=== PATIENT | female | born 1940 | race Caucasian/White ===

== ENCOUNTER 2017-11-22 01:24 | Inpatient (IN) | payer MEDICARE, OTHER ==
[~2017-11-22] VITALS: Ht 157.5 cm; Wt 56.2 kg
[2017-11-22 04:20] VITALS: BP 152/88
[2017-11-22] MEDS ORDERED: OLAN5TAB3 PO (04:27)
[2017-11-22] MEDS ORDERED: QUET25TA PO (04:27)
[2017-11-22] MEDS ORDERED: MIRT15TA7 PO (04:27)
[2017-11-22] MEDS ORDERED: MAG HYDROX/AL HYDROX/SIMETH 30 ML UDC PO PRN (04:30)
[2017-11-22] MEDS ORDERED: LORAZEPAM 0.5 MG TABLET PO PRN (04:30)
[2017-11-22] MEDS ORDERED: ACETAMINOPHEN 325 MG TABLET PO PRN (04:30)
--- NOTE | 2017-11-22 04:30 | NUR ---
GPS ADMISSION NOTE, RECEIVED PATIENT FROM [place] [facility]. PATIENT ARRIVED ON THIS UNIT AT 0430 VIA STRETCHER WITH 2 EMT ESCORTS. PATIENT ADMITTED ON A 5150 HOLD FOR DTS AND GD. PER HOLD PATIENT HAS SIGNIFICANT DEPRESSION WITH THOUGHTS OF SUICIDE WITH A PLAN TO CUT HER WRISTS. PATIENT ALSO REPORTS THAT SHE HAS BEEN UNABLE TO GET OUT OF BED, HAS NOT BEEN SLEEPING, AND HAS NOT BEEN EATING FOR THE PAST 4-5 DAYS. PATIENT UNABLE TO PROVIDE A SAFE PLAN FOR SELF CARE AT THIS TIME. THE 5150 WAS REVIEWED AND THE DOCUMENTATION IN THE 5150 HOLD APPEARS TO REFLECT THE PRESENTATION OF THE PATIENT. UPON FACE TO FACE ASSESSMENT PATIENT IS CURRENTLY LYING IN BED AWAKE, HAS NO S/S OR COMPLAINTS OF PAIN AT THIS TIME. PATIENT IS DISPLAYING NO S/S OF APPARENT DISTRESS. PATIENT BREATHING IS UNLABORED WITH EQUAL RISE AND FALL OF THE CHEST. PATIENT IS ALERT AND ORIENTATED X 4 ON ROOM AIR. PATIENT ASSISTED WITH TURING AND REPOSITIONING Q2HR AND PRN FOR COMFORT AND CIRCULATION. PATIENT HAS NO NEEDS AT THIS TIME. PATIENT IS NOTED TO BEING WITHDRAWN, DEPRESSED, DISHEVELED, DISORGANIZED, COOPERATIVE, AND NEEDS REDIRECTION. PATIENT IS UNDER THE PSYCHIATRIC CARE OF DR. ELLIOTT AND THE MEDICAL CARE OF DR GRAMAJO . PATIENT BELONGINGS WERE INVENTORIED AND CHECKED FOR CONTRABAND. ALL CONTRABAND REMOVED AND STORED IN PATIENT HALLWAY LOCKER. PATIENT ADVANCED DIRECTIVES PREFERENCE, IMMUNIZATIONS QUESTIONER, NECESSARY PAPERWORK AND, SKIN ASSESSMENT COMPLETED. PATIENT ORIENTATED TO ROOM, FLOOR, AND STAFF WITH ALL QUESTIONS ANSWERED. PATIENT EDUCATED ON THE USE OF THE CALL MUNOZ. PATIENT REFUSED TO SIGN ALL PAPERWORK. PATIENT BED SIDE RAILS ARE UP X 2 FOR SAFETY. PATIENT BED IS LOCKED, LOW AND I WILL CONTINUE TO MONITOR THIS PATIENT Q 15 MIN WITH THE HELP OF STAFF TO MAINTAIN SAFETY.
[2017-11-22 06:55] LABS: ALANINE AMINOTRANSFERASE 21 U/L (12-78); ALBUMIN 3.6 g/dL (3.4-5.0); ALKALINE PHOSPHATASE 41 U/L (46-116); ASPARTATE AMINOTRANSFERASE 19 U/L (15-37); BILIRUBIN,TOTAL 0.8 mg/dL (0.2-1.0); CALCIUM, SERUM 8.9 mg/dL (8.5-10.1); CARBON DIOXIDE 20 mmol/L (21-32); CHLORIDE 98 mmol/L (98-107); CREATININE 0.8 mg/dL (0.6-1.3); GLUCOSE 63 mg/dL (74-106); POTASSIUM 3.9 mmol/L (3.5-5.1); SODIUM SERUM 135 mmol/L (136-145); UREA NITROGEN, BLOOD 16 mg/dL (7-18)
[2017-11-22 08:00] VITALS: BP 142/82
[2017-11-22 16:04] VITALS: BP 163/80
--- NOTE | 2017-11-22 16:06 | NUR ---
Initial Discharge Plan: Pt currently resides at [address] [place] [address] with her , Justus Cisneros ([phone]). Per pt, she would like to return home. SID will work with the pt, the family, and the MD regarding appropriate discharge plans. SW will form a safe and proper discharge.
--- NOTE | 2017-11-22 16:12 | NUR ---
SW called the pt's , Justus Cisneros ([phone]), and discussed a possible plan of action and received the pt's psychiatrist and primary doctor's information.
[2017-11-22 20:00] VITALS: BP 135/74
[2017-11-22] MEDS: MIRTAZAPINE 15 MG TABLET PO SCH (21:09)
[2017-11-22] MEDS: QUETIAPINE FUMARATE 25 MG TABLET PO SCH (21:09)
[2017-11-23 07:25] LABS: CHOLESTEROL 195 mg/dL (<200); HDL CHOLESTEROL 43 mg/dL (40-60); LDL 134 mg/dL (0-99); TRIGLYCERIDES 107 mg/dL (30-150)
[2017-11-23 08:00] VITALS: BP 149/70
[2017-11-23 16:00] VITALS: BP 135/84
[2017-11-23 20:00] VITALS: BP 141/77
[2017-11-23] MEDS: QUETIAPINE FUMARATE 25 MG TABLET PO SCH (22:07)
[2017-11-23] MEDS: MIRTAZAPINE 15 MG TABLET PO SCH (22:07)
[2017-11-23] MEDS: TEMAZEPAM 7.5 MG CAPSULE PO PRN (22:08)
--- NOTE | 2017-11-23 22:09 | NUR ---
TEMAZEPAM 7.5 MG CAP 1 PO GIVEN FOR SLEEP.
[2017-11-24 08:00] VITALS: BP 137/71
[2017-11-24 16:00] VITALS: BP_SYST 134; BP_SYST 140; BP_DIAS 65; BP_DIAS 75
--- NOTE | 2017-11-24 16:55 | NUR ---
AM RN NOTE Pt refused breakfast and lunch, ate 2 icecreams around 1600. Pt seen and assessed by Dr. Good made aware about pt's poor appetite and depressed mood. Will wait for new orders.
[2017-11-24 20:00] VITALS: BP 144/82
[2017-11-24] MEDS: QUETIAPINE FUMARATE 25 MG TABLET PO SCH (21:27)
[2017-11-24] MEDS: MIRTAZAPINE 15 MG TABLET PO SCH (21:27)
--- NOTE | 2017-11-25 00:37 | NUR ---
Pt has been impassive, withdrawn, with flat affect, anhedonic, & hypoverbal. She refused her po meds last night stating "They knock me out all day".
[2017-11-25 08:00] VITALS: BP 144/71
[2017-11-25 10:03] LABS: BASOPHILS % (AUTO) 0.4 % (0.0-2.0); EOSINOPHILS % (AUTO) 0.8 % (0.0-6.0); HEMATOCRIT 38 % (33-45); HEMOGLOBIN 13.1 g/dL (11.5-14.8); LYMPHOCYTES # (AUTO) 1.2 /CMM (0.8-4.8); LYMPHOCYTES % (AUTO) 23.3 % (20.0-44.0); MEAN CORPUSCULAR HEMOGLOBIN 33 PG (26.0-33.0); MEAN CORPUSCULAR HGB CONC 34 g/dl (31.0-36.0); MEAN CORPUSCULAR VOLUME 97 fL (82-100); MONOCYTES # (AUTO) 0.4 /CMM (0.1-1.30); MONOCYTES % (AUTO) 8.8 % (2.0-12.0); NEUTROPHILS # (AUTO) 3.3 /CMM (1.8-8.9); NEUTROPHILS % (AUTO) 66.7 % (43.0-81.0); PLATELET COUNT (AUTO) 252 /CMM (150-450); RDW COEFFICIENT OF VARIATION 12.2 (11.5-15.0); RED BLOOD CELL COUNT(AUTO) 3.94 MIL/uL (4.0-5.2); WHITE BLOOD COUNT (AUTO) 4.9 K/uL (4.3-11.0)
[2017-11-25 10:28] LABS: CALCIUM, SERUM 9.2 mg/dL (8.5-10.1); CARBON DIOXIDE 24 mmol/L (21-32); CHLORIDE 102 mmol/L (98-107); CREATININE 0.8 mg/dL (0.6-1.3); GLUCOSE 81 mg/dL (74-106); POTASSIUM 3.8 mmol/L (3.5-5.1); SODIUM SERUM 137 mmol/L (136-145); UREA NITROGEN, BLOOD 13 mg/dL (7-18)
[2017-11-25 16:00] VITALS: BP 131/85
[2017-11-25 20:24] VITALS: BP 111/78
[2017-11-25] MEDS: MIRTAZAPINE 15 MG TABLET PO SCH (21:52)
[2017-11-25] MEDS: QUETIAPINE FUMARATE 25 MG TABLET PO SCH (21:52)
[2017-11-26 08:50] VITALS: BP 137/73
[2017-11-26 16:00] VITALS: BP 140/72
[2017-11-26 20:00] VITALS: BP 126/76
[2017-11-26] MEDS: MIRTAZAPINE 15 MG TABLET PO SCH (21:48)
[2017-11-26] MEDS: QUETIAPINE FUMARATE 25 MG TABLET PO SCH (21:48)
[2017-11-27 06:58] LABS: ALANINE AMINOTRANSFERASE 21 U/L (12-78); ALBUMIN 3.2 g/dL (3.4-5.0); ALKALINE PHOSPHATASE 38 U/L (46-116); ASPARTATE AMINOTRANSFERASE 22 U/L (15-37); BILIRUBIN,TOTAL 0.7 mg/dL (0.2-1.0); CALCIUM, SERUM 8.9 mg/dL (8.5-10.1); CARBON DIOXIDE 21 mmol/L (21-32); CHLORIDE 102 mmol/L (98-107); CREATININE 0.8 mg/dL (0.6-1.3); GLUCOSE 78 mg/dL (74-106); MAGNESIUM 1.9 mg/dL (1.8-2.4); POTASSIUM 3.8 mmol/L (3.5-5.1); SODIUM SERUM 138 mmol/L (136-145); TOTAL PROTEIN, SERUM 6.7 g/dL (6.4-8.2); UREA NITROGEN, BLOOD 21 mg/dL (7-18)
[2017-11-27 07:18] LABS: BASOPHILS % (AUTO) 0.5 % (0.0-2.0); EOSINOPHILS % (AUTO) 1.3 % (0.0-6.0); HEMATOCRIT 38 % (33-45); HEMOGLOBIN 13.1 g/dL (11.5-14.8); LYMPHOCYTES # (AUTO) 1.3 /CMM (0.8-4.8); LYMPHOCYTES % (AUTO) 29.8 % (20.0-44.0); MEAN CORPUSCULAR HEMOGLOBIN 33 PG (26.0-33.0); MEAN CORPUSCULAR HGB CONC 34 g/dl (31.0-36.0); MEAN CORPUSCULAR VOLUME 98 fL (82-100); MONOCYTES # (AUTO) 0.4 /CMM (0.1-1.30); MONOCYTES % (AUTO) 9.6 % (2.0-12.0); NEUTROPHILS # (AUTO) 2.6 /CMM (1.8-8.9); NEUTROPHILS % (AUTO) 58.8 % (43.0-81.0); PLATELET COUNT (AUTO) 225 /CMM (150-450); RDW COEFFICIENT OF VARIATION 12.2 (11.5-15.0); RED BLOOD CELL COUNT(AUTO) 3.93 MIL/uL (4.0-5.2); WHITE BLOOD COUNT (AUTO) 4.4 K/uL (4.3-11.0)
[2017-11-27] MEDS: ENSURE ENLIVE CHOC 237 ML CAN PO SCH ×3 (08:00→17:41)
[2017-11-27 09:07] VITALS: BP 136/74
--- NOTE | 2017-11-27 11:30 | NUR ---
SID called the pt's , Justus Cisneros ([phone]), and he agreed for the SW to start sending out referrals for when she is ready for discharge.
[2017-11-27 16:00] VITALS: BP 141/72
[2017-11-27 20:34] VITALS: BP 129/67
[2017-11-27] MEDS: MIRTAZAPINE 15 MG TABLET PO SCH (22:00)
[2017-11-27] MEDS: QUETIAPINE FUMARATE 25 MG TABLET PO SCH (22:23)
[2017-11-27] MEDS: TEMAZEPAM 7.5 MG CAPSULE PO PRN (22:27)
[2017-11-28 08:00] VITALS: BP 126/79
[2017-11-28] MEDS: ENSURE ENLIVE CHOC 237 ML CAN PO SCH ×2 (08:20→16:48)
[2017-11-28] MEDS: MEGESTROL ACETATE SUSP 400 MG/10 ML UDC PO SCH (08:20)
[2017-11-28 16:00] VITALS: BP 109/81
[2017-11-28 20:00] VITALS: BP 115/61
[2017-11-28 20:23] VITALS: BP 115/61
[2017-11-28] MEDS: MIRTAZAPINE 15 MG TABLET PO SCH (21:22)
--- NOTE | 2017-11-28 21:30 | NUR ---
RN NOTES PT. REFUSED HER REMERON "PT STATED THAT IT GIVES HER A HEADACHE, OFFERED TYLENOL FOR THE HEADACHE BUT STILL PT. REFUSED TO TAKE THE MEDICATION
[2017-11-28] MEDS ORDERED: QUETIAPINE FUMARATE 25 MG TABLET PO SCH (22:00)
[2017-11-29 08:00] VITALS: BP 148/76
[2017-11-29] MEDS: ENSURE ENLIVE CHOC 237 ML CAN PO SCH ×3 (08:00→17:00)
[2017-11-29] MEDS: MEGESTROL ACETATE SUSP 400 MG/10 ML UDC PO SCH (08:24)
--- NOTE | 2017-11-29 09:06 | NUR ---
GPS/RN-NOTES PATIENT REFUSED ENSURE AND BREAKFAST DESPITE EXPLANATIONS OF THE RISK OF NOT EATING OR DRINKING. PATIENT STATED" I'M FULL I CANNOT EAT". OFFERED X3.
[2017-11-29] MEDS: QUETIAPINE FUMARATE 25 MG TABLET PO SCH (09:11)
--- NOTE | 2017-11-29 11:00 | NUR ---
GPS/RN-NOTES SEEN BY DR. KRANTHI SALAZAR WITH VERBAL ORDER OF DULCOLAX 5MG P.O PRN FOR CONSTIPATION,MAY REPEAT IF NO BM IN 4HRS. NOTED AND CARRIED OUT. Addendum: 11/29/17 at 1103 by SVETLANA CASE RN IN ADDITION TO MY NOTES ABOVE. MD ALSO MADE AWARE OF PATIENT REFUSAL TO EAT BREAKFAST AND DRINK ENSURE.
[2017-11-29] MEDS: BISACODYL (5 MG) 5 MG TABLET.DR PO PRN ×2 (11:29→17:34)
--- NOTE | 2017-11-29 11:30 | NUR ---
GPS/RN-NOTES PATIENT C/O CONSTIPATION FOR FEW DAYS. DULCOLAX 5MG P.O GIVEN PRN ORDER. WILL CONT. MONITORING FOR EFFECTIVENESS.
[2017-11-29 16:00] VITALS: BP 135/77
--- NOTE | 2017-11-29 17:35 | NUR ---
GPS/RN-NOTES FIRST DULCOLAX WAS NOT EFFECTIVE, 2ND DULCOLAX 5MG P.O GIVEN. WILL CONT. MONITORING FOR EFFECTIVENESS.
[2017-11-29 20:00] VITALS: BP 139/78
[2017-11-29] MEDS ORDERED: QUETIAPINE FUMARATE 25 MG TABLET ONE (21:28)
[2017-11-29] MEDS: MIRTAZAPINE 15 MG TABLET PO SCH (21:43)
--- NOTE | 2017-11-29 21:44 | NUR ---
GPS RN NOTES PATIENT REFUSED REMERON 7.5MG STATES " I DONT TAKE REMERON IT GIVES ME A HEADACHE." WILL CONTINUE TO MONITOR. DENIES PAIN AT THIS TIME. PATIENT IN BED, COMFORTABLE , LOW BED AND LOCKED.
[2017-11-29] MEDS ORDERED: QUETIAPINE FUMARATE 25 MG TABLET PO SCH (22:00)
[2017-11-30 08:00] VITALS: BP 137/76
[2017-11-30] MEDS: ENSURE ENLIVE CHOC 237 ML CAN PO SCH ×2 (08:00→17:00)
[2017-11-30] MEDS: QUETIAPINE FUMARATE 25 MG TABLET PO SCH ×2 (09:00→11:57)
[2017-11-30] MEDS: VENLAFAXINE XR 75 MG CAP.SR.24H PO SCH ×2 (09:00→11:56)
[2017-11-30] MEDS: MEGESTROL ACETATE SUSP 400 MG/10 ML UDC PO SCH ×2 (09:00→11:56)
--- NOTE | 2017-11-30 11:30 | NUR ---
RN NOTES PATIENT CHANGE HER MIND AND AGREES TAKEN MORNING SCHEDULED MEDICATION, AFTER SHOWER. ENCOURAGED TO INCREASE FLUID INTAKE, ALSO GOING TO COLLECT UA SPECIMEN.
[2017-11-30 11:40] LABS: BASOPHILS # (AUTO) 0.1 /CMM (0.0-0.2); BASOPHILS % (AUTO) 1.4 % (0.0-2.0); EOSINOPHILS % (AUTO) 0.4 % (0.0-6.0); HEMATOCRIT 40 % (33-45); HEMOGLOBIN 13.4 g/dL (11.5-14.8); LYMPHOCYTES # (AUTO) 1.2 /CMM (0.8-4.8); LYMPHOCYTES % (AUTO) 16.6 % (20.0-44.0); MEAN CORPUSCULAR HEMOGLOBIN 33 PG (26.0-33.0); MEAN CORPUSCULAR HGB CONC 34 g/dl (31.0-36.0); MEAN CORPUSCULAR VOLUME 98 fL (82-100); MONOCYTES # (AUTO) 0.5 /CMM (0.1-1.30); NEUTROPHILS # (AUTO) 5.3 /CMM (1.8-8.9); NEUTROPHILS % (AUTO) 74.6 % (43.0-81.0); PLATELET COUNT (AUTO) 219 /CMM (150-450); RDW COEFFICIENT OF VARIATION 12.7 (11.5-15.0); RED BLOOD CELL COUNT(AUTO) 4.09 MIL/uL (4.0-5.2); WHITE BLOOD COUNT (AUTO) 7.1 K/uL (4.3-11.0)
[2017-11-30 12:08] LABS: CALCIUM, SERUM 9.3 mg/dL (8.5-10.1); CARBON DIOXIDE 22 mmol/L (21-32); CHLORIDE 102 mmol/L (98-107); GLUCOSE 96 mg/dL (74-106); POTASSIUM 3.3 mmol/L (3.5-5.1); SODIUM SERUM 140 mmol/L (136-145); UREA NITROGEN, BLOOD 25 mg/dL (7-18)
[2017-11-30 12:13] LABS: ALANINE AMINOTRANSFERASE 20 U/L (12-78); ALBUMIN 3.6 g/dL (3.4-5.0); ALKALINE PHOSPHATASE 41 U/L (46-116); ASPARTATE AMINOTRANSFERASE 21 U/L (15-37); BILIRUBIN,TOTAL 0.7 mg/dL (0.2-1.0); MAGNESIUM 1.9 mg/dL (1.8-2.4); PHOSPHORUS 3.4 mg/dL (2.5-4.9); TOTAL PROTEIN, SERUM 7.2 g/dL (6.4-8.2)
[2017-11-30 16:00] VITALS: BP 121/70
[2017-11-30] MEDS ORDERED: POTASSIUM CHLORIDE 20 MEQ TAB.PRT.SR PO SCH (17:30)
[2017-11-30] MEDS: OLANZAPINE 2.5 MG TABLET PO SCH (17:45)
--- NOTE | 2017-11-30 18:00 | NUR ---
RN NOTES PATIENT REFUSED TO EAT, BUT TAKEN SCHEDULED MEDICATION, AND DRINKING WATER, ENCOURAGED TO INCREASE FLUID INTAKE. V/S TAKEN STABLE, CALL MUNOZ NEAR TO REACH, SAFETY PRECAUTION MAINTAINED ALL THE TIME.
[2017-11-30 20:00] VITALS: BP 124/80
[2017-12-01 07:07] LABS: CALCIUM, SERUM 9.4 mg/dL (8.5-10.1); CARBON DIOXIDE 22 mmol/L (21-32); CHLORIDE 100 mmol/L (98-107); GLUCOSE 84 mg/dL (74-106); POTASSIUM 3.9 mmol/L (3.5-5.1); SODIUM SERUM 137 mmol/L (136-145); UREA NITROGEN, BLOOD 22 mg/dL (7-18)
[2017-12-01 08:00] VITALS: BP 164/77
[2017-12-01] MEDS: ENSURE ENLIVE CHOC 237 ML CAN PO SCH ×2 (08:00→16:05)
[2017-12-01] MEDS: OLANZAPINE 2.5 MG TABLET PO SCH ×3 (08:41→16:05)
[2017-12-01] MEDS: MEGESTROL ACETATE SUSP 400 MG/10 ML UDC PO SCH (08:41)
[2017-12-01] MEDS: VENLAFAXINE XR 75 MG CAP.SR.24H PO SCH (08:44)
[2017-12-01 11:32] LABS: APPEARANCE,URINE CLOUDY (CLEAR); BILIRUBIN,URINE 1+ (NEGATIVE); BLOOD, URINE NEGATIVE Ery/uL (NEGATIVE); COLOR,URINE DARK YELLO (YELLOW); KETONES,URINE 3+ (NEGATIVE); LEUKOCYTE ESTERASE ,URINE TRACE (NEGATIVE); NITRITE, URINE NEGATIVE (NEGATIVE); PROTEIN,URINE TRACE mg/dl (NEGATIVE); UGLUCOSE NEGATIVE (NEGATIVE); UROBILINOGEN,URINE 0.2 EU/dL (0.2)
[2017-12-01 11:56] LABS: RBC,URINE NONE SEEN /HPF (0-2)
[2017-12-01 11:57] LABS: BACTERIA,URINE Few /HPF (None Seen); SQUAMOUS EPITHELIAL CELL,UR Few /HPF (None Seen); URINE AMORPHOUS URATE Moderate /HPF (None Seen)
[2017-12-01 16:00] VITALS: BP 136/77
[2017-12-01] MEDS: BISACODYL (5 MG) 5 MG TABLET.DR PO PRN (16:05)
[2017-12-01 20:00] VITALS: BP 124/62
[2017-12-02 08:00] VITALS: BP 143/68
[2017-12-02] MEDS: ENSURE ENLIVE CHOC 237 ML CAN PO SCH ×2 (08:00→17:00)
[2017-12-02] MEDS: MEGESTROL ACETATE SUSP 400 MG/10 ML UDC PO SCH (09:00)
[2017-12-02] MEDS: OLANZAPINE 2.5 MG TABLET PO SCH ×3 (09:00→17:00)
--- NOTE | 2017-12-02 10:20 | NUR ---
GPS/RN-NOTES PATIENT STRONGLY REFUSED TO EAT HER BREAKFAST AND ALL 0900AM P.O MEDICATIONS DESPITE EXPLANATIONS RISK AND BENEFITS OF EATING AND TAKING MEDICATIONS. DR. LINTON COVERING FOR DR. ELLIOTT TODAY MADE AWARE OF PATIENT REFUSAL . PATIENT STATED" I CANNOT TAKE ANY MEDICATIONS ANYMORE". OFFERED X3.
[2017-12-02 16:04] VITALS: BP 151/81
--- NOTE | 2017-12-02 17:29 | NUR ---
GPS/RN-NOTES PATIENT REFUSED ALL 1700 MEDICATION INCLUDING ENSURE. STATED" I'M FULL I DON'T WANT TO EAT AND TAKE MEDICATIONS". OFFERED X3.
[2017-12-02 17:45] LABS: ALANINE AMINOTRANSFERASE 44 U/L (12-78); ALBUMIN 3.3 g/dL (3.4-5.0); ALKALINE PHOSPHATASE 34 U/L (46-116); ASPARTATE AMINOTRANSFERASE 34 U/L (15-37); BILIRUBIN,TOTAL 0.5 mg/dL (0.2-1.0); CALCIUM, SERUM 8.8 mg/dL (8.5-10.1); CARBON DIOXIDE 24 mmol/L (21-32); CHLORIDE 104 mmol/L (98-107); CREATININE 0.8 mg/dL (0.6-1.3); GLUCOSE 83 mg/dL (74-106); POTASSIUM 3.8 mmol/L (3.5-5.1); SODIUM SERUM 141 mmol/L (136-145); TOTAL PROTEIN, SERUM 6.7 g/dL (6.4-8.2); UREA NITROGEN, BLOOD 20 mg/dL (7-18)
[2017-12-02 20:37] VITALS: BP 132/73
[2017-12-02 20:41] VITALS: BP 132/73
[2017-12-02] MEDS: BISACODYL (5 MG) 5 MG TABLET.DR PO PRN (22:55)
--- NOTE | 2017-12-02 22:55 | NUR ---
COMPLAINED THAT SHE DID NOT HAVE ANY BOWEL MOVEMENT FOR 2 WEEKS, BISACODYL 5 MG TAB PO GIVEN
[2017-12-03 06:50] LABS: BASOPHILS # (AUTO) 0.1 /CMM (0.0-0.2); BASOPHILS % (AUTO) 0.8 % (0.0-2.0); HEMATOCRIT 38 % (33-45); HEMOGLOBIN 13.1 g/dL (11.5-14.8); LYMPHOCYTES # (AUTO) 1.6 /CMM (0.8-4.8); MEAN CORPUSCULAR HEMOGLOBIN 33 PG (26.0-33.0); MEAN CORPUSCULAR HGB CONC 34 g/dl (31.0-36.0); MEAN CORPUSCULAR VOLUME 95 fL (82-100); MONOCYTES # (AUTO) 0.5 /CMM (0.1-1.30); MONOCYTES % (AUTO) 8.5 % (2.0-12.0); NEUTROPHILS % (AUTO) 64.7 % (43.0-81.0); PLATELET COUNT (AUTO) 208 /CMM (150-450); RDW COEFFICIENT OF VARIATION 12.2 (11.5-15.0); RED BLOOD CELL COUNT(AUTO) 4.02 MIL/uL (4.0-5.2); WHITE BLOOD COUNT (AUTO) 6.3 K/uL (4.3-11.0)
[2017-12-03 07:00] LABS: CALCIUM, SERUM 9.2 mg/dL (8.5-10.1); CARBON DIOXIDE 20 mmol/L (21-32); CHLORIDE 105 mmol/L (98-107); CREATININE 0.8 mg/dL (0.6-1.3); GLUCOSE 74 mg/dL (74-106); SODIUM SERUM 138 mmol/L (136-145); UREA NITROGEN, BLOOD 21 mg/dL (7-18)
[2017-12-03 08:00] VITALS: BP 128/77
[2017-12-03] MEDS: OLANZAPINE 2.5 MG TABLET PO SCH ×3 (08:38→16:30)
[2017-12-03] MEDS: MEGESTROL ACETATE SUSP 400 MG/10 ML UDC PO SCH ×2 (08:39→09:00)
[2017-12-03] MEDS: ENSURE ENLIVE CHOC 237 ML CAN PO SCH ×2 (08:41→16:28)
[2017-12-03 16:00] VITALS: BP 132/74
[2017-12-03 21:06] VITALS: BP 130/72
[2017-12-03] MEDS ORDERED: OLANZAPINE 2.5 MG TABLET PO SCH (21:30)
[2017-12-03] MEDS ORDERED: OLANZAPINE 2.5 MG TABLET PO ONE (21:30)
--- NOTE | 2017-12-04 06:37 | NUR ---
patient took zyprexa 2.5 mg one dose last night no complain of discomfort denies any pain respiratory even unlabored, vital sign stable will continues to monitor the patient for safety and fall.
[2017-12-04 08:00] VITALS: BP 125/87
[2017-12-04] MEDS: ENSURE ENLIVE CHOC 237 ML CAN PO SCH ×2 (08:00→16:04)
[2017-12-04] MEDS: OLANZAPINE 2.5 MG TABLET PO SCH ×3 (08:33→16:04)
[2017-12-04] MEDS: MEGESTROL ACETATE SUSP 400 MG/10 ML UDC PO SCH (08:33)
[2017-12-04] MEDS: SULFAMETH/TRIMETH 800/160 MG 1 UDTAB TABLET PO SCH ×2 (12:07→20:51)
[2017-12-04 16:00] VITALS: BP 148/81
[2017-12-04] MEDS ORDERED: BISACODYL SUPP (10 MG) 10 MG/SUPP.RECT SUPP.RECT RC PRN (16:00)
[2017-12-04] MEDS: MAGNESIUM HYDROXIDE 30 ML UDC PO PRN (16:04)
[2017-12-04] MEDS: BISACODYL (5 MG) 5 MG TABLET.DR PO PRN (16:04)
--- NOTE | 2017-12-04 18:56 | NUR ---
GPS RN NOTE: PT REPORTED HAD A SMALL BM PT N.P. REPEAT MOM PRN,SUPPOSITORY, DULCOLAX X1 TOMORROW WILL CONTINUE MONITORING.
--- NOTE | 2017-12-04 19:35 | NUR ---
GPS RN NOTE: PATIENT RESTING IN BED, NO ACUTE DISTRESS NOTED. PATIENT ISOLATED TO ROOM, BUT CALM AND COOPERATIVE. WILL CONTINUE TO MONITOR.
[2017-12-04 20:15] VITALS: BP 136/78
[2017-12-05 08:00] VITALS: BP 132/97
[2017-12-05] MEDS: ENSURE ENLIVE CHOC 237 ML CAN PO SCH ×2 (08:00→16:31)
[2017-12-05] MEDS: OLANZAPINE 2.5 MG TABLET PO SCH ×3 (08:51→16:32)
[2017-12-05] MEDS: SULFAMETH/TRIMETH 800/160 MG 1 UDTAB TABLET PO SCH ×2 (08:51→21:33)
[2017-12-05] MEDS: MEGESTROL ACETATE SUSP 400 MG/10 ML UDC PO SCH (08:51)
--- NOTE | 2017-12-05 09:38 | NUR ---
GPS/RN-NOTES PATIENT NOT EATING BREAKFAST AND REFUSE ENSURE DESPITE ENCOURAGEMENT.OFFERED X3
[2017-12-05] MEDS ORDERED: NA PHOS,M-B/NA PHOS,DI-BA 1 EA ENEMA RC PRN (11:30)
[2017-12-05] MEDS: BISACODYL (5 MG) 5 MG TABLET.DR PO PRN (12:38)
[2017-12-05] MEDS: MAGNESIUM HYDROXIDE 30 ML UDC PO PRN (12:38)
--- NOTE | 2017-12-05 13:10 | NUR ---
GPS/RN-NOTES IJEOMA GRAMAJO SEEN THE PATIENT EARLIER WITH VERBAL ORDER TO GIVE DULCOLAX TABLET ,MOM AND FLEET ENEMA. ALL ORDERS WAS GIVEN TO THE PATIENT.
--- NOTE | 2017-12-05 14:15 | NUR ---
GPS/RN-NOTES FLEET ENEMA WAS GIVEN TO THE PATIENT. EFFECTIVE WITH X1 LARGE BM.
[2017-12-05 17:06] VITALS: BP 129/95
[2017-12-05 20:43] VITALS: BP 125/68
[2017-12-05] MEDS: MIRTAZAPINE 15 MG TABLET PO SCH (21:32)
[2017-12-06 08:00] VITALS: BP 138/72
[2017-12-06] MEDS: MEGESTROL ACETATE SUSP 400 MG/10 ML UDC PO SCH (08:29)
[2017-12-06] MEDS: ENSURE ENLIVE CHOC 237 ML CAN PO SCH ×2 (08:29→16:30)
[2017-12-06] MEDS: OLANZAPINE 2.5 MG TABLET PO SCH ×3 (08:29→16:28)
[2017-12-06] MEDS: SULFAMETH/TRIMETH 800/160 MG 1 UDTAB TABLET PO SCH ×2 (08:30→21:19)
[2017-12-06 16:00] VITALS: BP 129/66
--- NOTE | 2017-12-06 16:38 | NUR ---
Pt was admitted to [facility].
--- NOTE | 2017-12-06 16:38 | NUR ---
SID called the pt's , Justus Cisneros ([phone]), and he was not content with the fact that his is being discharged tomorrow.
[2017-12-06 20:00] VITALS: BP 129/63
[2017-12-06] MEDS: MIRTAZAPINE 15 MG TABLET PO SCH (21:19)
--- NOTE | 2017-12-06 21:30 | NUR ---
GPS RN NOTE: RECEIVED PATIENT ALERT AND ORIENTED X 2, RESTING IN BED, WITHOUT COMPLAINT AND NO ACUTE DISTRESS NOTED. PATIENT ISOLATED TO ROOM, APPEARS SAD, BUT CALM AND COOPERATIVE. DENIES SI, HI. SIDE RAILS UP X 2 FOR SAFETY, WILL CONTINUE TO MONITOR Q15 MINUTES.
[2017-12-07 08:00] VITALS: BP 125/52
[2017-12-07] MEDS: MEGESTROL ACETATE SUSP 400 MG/10 ML UDC PO SCH (09:00)
--- NOTE | 2017-12-07 09:04 | NUR ---
SW spoke to Dr. Good who is covering for Dr. Casillas and decided to push the discharge back due to the 's disapproval.
--- NOTE | 2017-12-07 09:08 | NUR ---
SID called the pt's , Justus Cisneros ([phone]), and informed him that the pt will not be discharged today.
[2017-12-07] MEDS: OLANZAPINE 2.5 MG TABLET PO SCH ×3 (09:30→18:37)
[2017-12-07] MEDS: SULFAMETH/TRIMETH 800/160 MG 1 UDTAB TABLET PO SCH ×2 (09:30→20:25)
[2017-12-07] MEDS: ENSURE ENLIVE CHOC 237 ML CAN PO SCH ×2 (09:41→17:06)
[2017-12-07] MEDS ORDERED: BISACODYL SUPP (10 MG) 10 MG/SUPP.RECT SUPP.RECT RC PRN (14:00)
[2017-12-07 16:00] VITALS: BP 124/74
[2017-12-07] MEDS: MAGNESIUM HYDROXIDE 30 ML UDC PO SCH (16:40)
[2017-12-07 20:00] VITALS: BP 107/56
[2017-12-07] MEDS: MIRTAZAPINE 15 MG TABLET PO SCH (21:54)
[2017-12-08] MEDS: MAGNESIUM HYDROXIDE 30 ML UDC PO SCH ×2 (03:16→16:00)
--- NOTE | 2017-12-08 03:16 | NUR ---
gps rn note: refused MOM, explained the risk and benefits x 3 attempts, patient still refused. Will continue to monitor [id number] for safety
[2017-12-08 08:00] VITALS: BP 133/73
[2017-12-08] MEDS: ENSURE ENLIVE CHOC 237 ML CAN PO SCH ×2 (08:42→16:25)
[2017-12-08] MEDS: MEGESTROL ACETATE SUSP 400 MG/10 ML UDC PO SCH (09:00)
[2017-12-08] MEDS: SULFAMETH/TRIMETH 800/160 MG 1 UDTAB TABLET PO SCH ×2 (09:46→21:49)
[2017-12-08] MEDS: BISACODYL (5 MG) 5 MG TABLET.DR PO SCH (09:46)
[2017-12-08] MEDS: OLANZAPINE 2.5 MG TABLET PO SCH ×2 (09:47→16:25)
--- NOTE | 2017-12-08 10:04 | NUR ---
GPS/RN PT REFUSED MEGESTROL PO. TOOK THE REST OF MEDICATIONS. POOR FOOD INTAKE NOTED. ENCOURAGED TO EAT
[2017-12-08 16:00] VITALS: BP 125/66
[2017-12-08 20:00] VITALS: BP 111/63
[2017-12-08] MEDS: MIRTAZAPINE 15 MG TABLET PO SCH (21:49)
[2017-12-09] MEDS: MAGNESIUM HYDROXIDE 30 ML UDC PO SCH ×2 (04:00→16:00)
[2017-12-09] MEDS: ENSURE ENLIVE CHOC 237 ML CAN PO SCH ×2 (07:40→16:09)
[2017-12-09 08:00] VITALS: BP 124/78
[2017-12-09] MEDS: MEGESTROL ACETATE SUSP 400 MG/10 ML UDC PO SCH (09:00)
[2017-12-09] MEDS: BISACODYL (5 MG) 5 MG TABLET.DR PO SCH (09:39)
[2017-12-09] MEDS: OLANZAPINE 2.5 MG TABLET PO SCH ×2 (09:39→16:08)
[2017-12-09] MEDS: SULFAMETH/TRIMETH 800/160 MG 1 UDTAB TABLET PO SCH ×2 (09:39→21:20)
[2017-12-09 16:00] VITALS: BP 143/75
--- NOTE | 2017-12-09 18:50 | NUR ---
GPS/RN PT ATE 35% OF DINNER AND ENSURE DRINK.
[2017-12-09 20:16] VITALS: BP 104/50
[2017-12-09] MEDS: MIRTAZAPINE 15 MG TABLET PO SCH (21:21)
[2017-12-09 23:00] VITALS: BP 110/62
[2017-12-10] MEDS: MAGNESIUM HYDROXIDE 30 ML UDC PO SCH ×2 (05:11→16:39)
[2017-12-10 08:00] VITALS: BP 141/74
[2017-12-10] MEDS: ENSURE ENLIVE CHOC 237 ML CAN PO SCH ×2 (08:00→17:21)
[2017-12-10] MEDS: OLANZAPINE 2.5 MG TABLET PO SCH ×2 (08:48→16:38)
[2017-12-10] MEDS: SULFAMETH/TRIMETH 800/160 MG 1 UDTAB TABLET PO SCH ×2 (08:48→21:04)
[2017-12-10] MEDS: BISACODYL (5 MG) 5 MG TABLET.DR PO SCH (08:48)
[2017-12-10] MEDS: MEGESTROL ACETATE SUSP 400 MG/10 ML UDC PO SCH (08:48)
--- NOTE | 2017-12-10 14:59 | NUR ---
SID called the pt's , Justus Cisneros ([phone]), and left a message asking him to call back.
[2017-12-10 16:00] VITALS: BP 121/64
--- NOTE | 2017-12-10 16:06 | NUR ---
SID called the pt's , Justus Cisneros ([phone]), and left a message informing him that a Medicare Letter of Denial has been issued and dated for tomorrow. The SW informed him that he can appeal it and that the information is on the letter so if he could provide a fax number it could be sent to him. SID also stated that the pt's stay will no longer be covered due to the letter.
[2017-12-10 20:46] VITALS: BP 105/69
[2017-12-10] MEDS: MIRTAZAPINE 15 MG TABLET PO SCH (21:04)
[2017-12-11] MEDS: MAGNESIUM HYDROXIDE 30 ML UDC PO SCH (03:25)
[2017-12-11 08:00] VITALS: BP 135/69
[2017-12-11] MEDS: MEGESTROL ACETATE SUSP 400 MG/10 ML UDC PO SCH (08:48)
[2017-12-11] MEDS: OLANZAPINE 2.5 MG TABLET PO SCH (08:48)
[2017-12-11] MEDS: BISACODYL (5 MG) 5 MG TABLET.DR PO SCH (08:49)
[2017-12-11] MEDS: ENSURE ENLIVE CHOC 237 ML CAN PO SCH (08:59)
--- NOTE | 2017-12-11 10:09 | NUR ---
SW called the pt's , Justus Cisneros ([phone]) and went over the medicare letter of denial. Pt then informed the that if he wanted to pay out of pocket then it would be over $1000/day. agreed to the [facility] placement and stated that he wanted the SW to help create a connection to one of the pt's previous facilities located in [place], [place] called [facility].
--- NOTE | 2017-12-11 10:10 | NUR ---
SID faxed updated notes to CJ from [facility] at his fax number of [phone] which denied suicidal ideation.
--- NOTE | 2017-12-11 12:02 | NUR ---
Discharge Note: Pt was discharged to [facility] ([facility]) located at [address] [place] [address]; ([phone]). Pt was transported via [facility] (Trip #[id number]) at 12PM. Pts , Dr. Justus Cisneros ([phone]), was notified and approved of this placement. Upon discharge, the pt appeared to have a depressed mood and flat affect. Pt was anxious about how this placement was going to be paid for regardless of the [facility] multiple attempts at reassuring her that her insurance is covering the costs. Upon discharge, the pt denied having any hallucinations and denied both suicidal and homicidal ideation as well. Pt will be under the care of psychiatrist, Dr. Casillas, located at [address] [place] [address]; ) and oxygen equipment aide, Dr. Santizo, located at [address] [place] [address]; ).
--- NOTE | 2017-12-11 12:05 | NUR ---
NURSING NOTE Pt was discharged to [facility] ([facility]) located at [address] [place] [address]; ([phone]) aqt Pt was transported via Ambulance (Trip #[id number]) at 1205. Pt is calm, cooperative, A&Ox3, anxious, flat affect, denies SI/HI,AVH at the time of discharge, vs stable. Pt was escorted out of the unit via gurney accompanied by 2 slip sheeter. Pt signed all paperwork, all belongings were returned to pt upon discharge. Discharge orders were obtained and pt is medically stable for dc. Report was given to Iris BARILLAS, at [facility] and med recon was faxed over as well. Report was given to slip sheeter as well as paperwork.
== END 2017-12-11 13:01 | DRG 885 ==
LOC: GPS 03:26
PROVIDERS: ADMIT Psychiatry & Neurology Psychiatry; ATTEND Psychiatry & Neurology Psychiatry
DX: F33.2 Major depressive disorder, recurrent severe without psychotic features (principal); R45.851 Suicidal ideations; N39.0 Urinary tract infection, site not specified; F29 Unspecified psychosis not due to a substance or known physiological condition; F41.9 Anxiety disorder, unspecified; Z73.6 Limitation of activities due to disability; I10 Essential (primary) hypertension; E78.5 Hyperlipidemia, unspecified; D64.9 Anemia, unspecified; E87.6 Hypokalemia; M19.90 Unspecified osteoarthritis, unspecified site; G31.84 Mild cognitive impairment of uncertain or unknown etiology; R62.7 Adult failure to thrive; K59.00 Constipation, unspecified; R63.3 Feeding difficulties; Z91.14 Patient's other noncompliance with medication regimen; Z90.710 Acquired absence of both cervix and uterus; Z82.49 Family history of ischemic heart disease and other diseases of the circulatory system; Z82.3 Family history of stroke
CPT/HCPCS: 36415; 74018; 80048-TC; 80053-TC; 80061-TC; 81000-TC; 83735-TC; 84100-TC; 85025-TC; 87081-TC; 87086-TC; Z7610